=== PATIENT | male | born 1965 | race Caucasian/White ===

== ENCOUNTER 2019-11-05 05:23 | Observation (INO) | payer OTHER ==
[2019-11-05 06:29] LABS: Absolute Lymphocytes (CBC) 1.2 K/uL (0.7-4.9); Basophils % 0.4 % (0-1.3); Hematocrit 41.4 % (39.6-49.0); Lymphocytes % 11.9 % (15.3-44.8); MPV 8.2 fL (7.6-11.3); RBC Red Blood Cell Count 4.56 M/uL (4.33-5.43)
[2019-11-05 06:33] LABS: Protime INR 0.95
[2019-11-05 06:40] LABS: ALT/SGPT 29 U/L (12-78); AST/SGOT 21 U/L (15-37); Albumin 3.2 g/dL (3.4-5.0); Alkaline Phosphatase 61 U/L (45-117); BUN Blood Urea Nitrogen 10 mg/dL (7-18); Bicarbonate 25 mmol/L (21-32); Bilirubin Direct 0.2 mg/dL (0-0.2); Bilirubin Total 0.6 mg/dL (0.2-1.0); CKMB Creatine Kinase MB 1.5 ng/mL (0.3-3.6); Creatine Phosphokinase 113 U/L (39-308); Glucose Level 108 mg/dL (74-106); Lipase 65 U/L (73-393); NT PRO-BNP 155 pg/mL (<125); Potassium 3.9 mmol/L (3.5-5.1); Protein, Total 7.6 g/dL (6.4-8.2); Sodium Level 139 mmol/L (136-145); Troponin (Emerg Dept Use Only) < 0.02 ng/mL (0.0-0.045)
--- NOTE | 2019-11-05 07:12 | RAD REPORT ---
EXAM DESCRIPTION: RAD - Chest Single View - 11/05/2019 6:01 am CLINICAL HISTORY: SOB, left-sided chest pain, productive cough with shortness of breath COMPARISON: Two view chest October 2015 TECHNIQUE: AP portable chest image was obtained 11/05/2019 6:01 am . FINDINGS: Lung volumes are low compared to the prior study. No peripheral mass or consolidation. Par enchymal stranding in the right apex is present mostly obscured by overlapping chest bony structures. No large mass in this area. A small infiltrate or small mass cannot be excluded. Heart and vasculatu re are normal. No measurable pleural effusion and no pneumothorax. No acute bony abnormality seen. No acute aortic findings suspected. IMPRESSION: No pulmonary edema or failure findings. Increased opacification in the right apex needs further evaluation to exclude mass or infiltrate. Fol low-up chest film with apical lordotic view or follow-up CT chest would be recommended for further ev aluation.
--- NOTE | 2019-11-05 07:46 | RAD REPORT ---
EXAM DESCRIPTION: CT - Chest For Pe Angio - 11/05/2019 7:21 am CLINICAL HISTORY: Chest pain;Cough;SOB COMPARISON: Chest Single View dated 11/05/2019 TECHNIQUE: Dynamically enhanced 3 mm thick images of the chest were obtained during administration o f approximately 150mL Isovue 370 IV contrast. Coronal and oblique MIP reconstruction images were gene rated and reviewed. Exam utilizes a protocol to evaluate the pulmonary arterial tree. All CT scans are performed using dose optimization technique as appropriate and may include automated exposure control or mA/KV adjustment according to patient size. FINDINGS: No pulmonary emboli are identified. The aorta as imaged shows no acute or suspicious finding. No pericardial thickening or effusion. Patient has multiple abnormalities clustered in the right upper lobe apex. There is a dominant 4 cent imeter cystic cavity showing thickened irregular aguirre. No air-fluid level confirmed within this mass . An adjacent 2 centimeter oval solid mass is present. There are several clustered cavitary and solid nodules in the superior aspect of the right upper lobe. In the superior aspect of the superior segme nt right lower lobe there are 2 nodular masses present. A 14 millimeter cystic mass or nodule is pres ent with an adjacent 10 millimeter mass. This cystic nodule shows a similar thickened rim. In the sup erior aspect of the left upper lobe there are 2 10 millimeter spiculated solid nodules present. The r ight middle lobe and left lower lobe are clear of any solid or cystic cavitary mass or nodule. No ground-glass opacification. Bronchial wall thickening is seen in the right upper lobe. No endobron chial lesion. No pleural effusion or pleural thickening. Small hilar lymph nodes are present. Subcarinal lymphadenopathy is present without enhancement eviden t. Wall enhancement is not clearly defined in the cavitary lesions. No chest wall masses or abnormal axillary lymphadenopathy. IMPRESSION: No pulmonary emboli identified. Multiple cavitary and solid nodules are present with the predominant cluster of findings in the super ior aspect right upper lobe. Differential for this constellation of findings is relatively broad. Tuberculosis as well as nontuber culous mycobacterial infections are a primary consideration.Aspergillosis can have this appearance. Lung abscess is a lesser consideration. Septic emboli are possible if the patient has a corresponding acute presentation. Metastatic disease is possible ; however, the constellation of findings favor in fectious process rather than malignancy.
--- NOTE | 2019-11-05 08:04 | EDPHYS ---
Physician Documentation [facility] Name: Trung Thornton Age: 54 yrs Sex: Male : 1965 Arrival Date: 11/05/2019 Time: 05:25 Bed 30 Private MD: ED Physician Kellen Eng HPI: 11/04 06:15 This 54 yrs old Male presents to ER via Ambulatory with complaints of tw4 Shortness Of Breath. 06:15 The patient has shortness of breath at rest. Onset: The symptoms/episode began/occurred tw4 yesterday. Duration: The symptoms are continuous, and are steadily getting worse. The patient's shortness of breath is aggravated by coughing, is alleviated by nothing. Associated signs and symptoms: Pertinent positives: chest pain. Severity of symptoms: At their worst the symptoms were moderate in the emergency department the symptoms are unchanged. The patient has not experienced similar symptoms in the past. Historical: - Allergies: 05:42 No Known Allergies; bb - Home Meds: 05:42 None [Active]; bb - PMHx: 05:42 Rheumatoid Arthritis; bb - PSHx: 05:42 None; bb - Immunization history:: Adult Immunizations up to date, Flu vaccine is not up to date. - Social history:: Smoking status: Patient reports the use of cigarette tobacco products, smokes two packs cigarettes per day. Patient uses alcohol, occasionally. ROS: 06:15 Constitutional: Negative for fever, chills, and weight loss, Eyes: Negative for injury, tw4 pain, redness, and discharge. 06:15 Abdomen/GI: Negative for abdominal pain, nausea, vomiting, diarrhea, and constipation, Back: Negative for injury and pain, MS/Extremity: Negative for injury and deformity, Skin: Negative for injury, rash, and discoloration, Neuro: Negative for headache, weakness, numbness, tingling, and seizure. 06:15 Cardiovascular: Positive for chest pain. 06:15 Cardiovascular: Positive for Negative for edema, orthopnea, palpitations, paroxysmal nocturnal dyspnea. 06:15 Respiratory: Positive for shortness of breath, Negative for cough, dyspnea on exertion, hemoptysis, orthopnea, pleurisy. Exam: 06:15 Constitutional: This is a well developed, well nourished patient who is awake, alert, tw4 and in no acute distress. Head/Face: Normocephalic, atraumatic. Chest/axilla: Normal chest wall appearance and motion. Nontender with no deformity. No lesions are appreciated. Cardiovascular: Regular rate and rhythm with a normal S1 and S2. No gallops, murmurs, or rubs. Normal PMI, no JVD. No pulse deficits. Respiratory: Lungs have equal breath sounds bilaterally, clear to auscultation and percussion. No rales, rhonchi or wheezes noted. No increased work of breathing, no retractions or nasal flaring. Abdomen/GI: Soft, non-tender, with normal bowel sounds. No distension or tympany. No guarding or rebound. No evidence of tenderness throughout. Back: No spinal tenderness. No costovertebral tenderness. Full range of motion. MS/ Extremity: Pulses equal, no cyanosis. Neurovascular intact. Full, normal range of motion. Neuro: Awake and alert, GCS 15, oriented to person, place, time, and situation. Cranial nerves II-XII grossly intact. Motor strength 5/5 in all extremities. Sensory grossly intact. Cerebellar exam normal. Normal gait. Vital Signs: 05:37 BP 122 / 72; Pulse 79; Resp 24 S; Temp 99(O); Pulse Ox 94% on R/A; Weight 74.84 kg (R); bb Height 5 ft. 11 in. (180.34 cm) (R); Pain 9/10; 06:33 BP 117 / 63; Pulse 74; Resp 25 S; Pulse Ox 98% on 2 lpm NC; jd3 07:45 BP 112 / 74; Pulse 68; Resp 24 S; Temp 99.9(O); Pulse Ox 98% on 2 lpm NC; aa5 08:45 BP 115 / 70; Pulse 71; Resp 25 S; Pulse Ox 99% on 2 lpm NC; aa5 09:26 BP 109 / 66; Pulse 75; Resp 22 S; Temp 99.8(O); Pulse Ox 99% on 2 lpm NC; aa5 10:40 BP 111 / 70; Pulse 68; Resp 20 S; Pulse Ox 99% on 2 lpm NC; aa5 05:37 Body Mass Index 23.01 (74.84 kg, 180.34 cm) MDM: 05:28 Patient medically screened. tw4 08:02 Differential diagnosis: Bronchitis Chronic Obstructive Pulmonary Disease pneumonia, ma2 Pneumothorax Pulmonary Embolism. Antibiotic administration: Data reviewed: vital signs, nurses notes. Response to treatment: the patient's symptoms have markedly improved after treatment. 11/04 05:29 Order name: Blood Culture Adult (2) 11/04 05:29 Order name: BMP; Complete Time: 07:56 11/04 05:29 Order name: CBC with Diff; Complete Time: 06:38 11/04 06:38 Interpretation: Normal except: YVAN% 75.8; LYM% 11.9. 11/04 05:29 Order name: Ckmb; Complete Time: 07:56 11/04 05:29 Order name: CPK; Complete Time: 07:56 11/04 05:29 Order name: D-Dimer; Complete Time: 06:38 11/04 06:38 Interpretation: Abnormal: D-DIMER 877. 11/04 05:29 Order name: Hepatic Function; Complete Time: 07:56 11/04 05:29 Order name: Lipase; Complete Time: 07:56 11/04 05:29 Order name: Magnesium; Complete Time: 07:56 11/04 05:29 Order name: NT PRO-BNP; Complete Time: 07:56 11/04 05:29 Order name: PT-INR; Complete Time: 06:38 11/04 06:38 Interpretation: Within normal limits: PT 11.2. 11/04 05:29 Order name: Ptt, Activated; Complete Time: 06:38 11/04 06:38 Interpretation: Within normal limits: PTT 26.8. 11/04 05:29 Order name: Troponin (emerg Dept Use Only); Complete Time: 07:56 11/04 06:13 Order name: COVID-19; Complete Time: 09:23 11/04 05:29 Order name: XRAY CXR (1 view); Complete Time: 07:56 11/04 05:29 Order name: EKG; Complete Time: 05:29 11/04 06:38 Order name: CT Chest For PE Angio; Complete Time: 07:56 tw11/04 09:14 Order name: CONS Physician Consult EDOR 11/04 09:14 Order name: Regular EDMS 11/04 09:14 Order name: Basic Metabolic Panel EDMS 11/04 09:14 Order name: Basic Metabolic Panel EDMS 11/04 09:14 Order name: Basic Metabolic Panel EDMS 11/04 09:14 Order name: Basic Metabolic Panel EDMS 11/04 09:14 Order name: CBC with Automated Diff EDMS 11/04 09:14 Order name: CBC with Automated Diff EDMS 11/04 09:14 Order name: CBC with Automated Diff EDMS 11/04 09:14 Order name: CBC with Automated Diff EDMS 11/04 09:14 Order name: Sputum Culture EDMS 11/04 09:20 Order name: Diet Regular; Complete Time: 09:21 mh5 11/04 11:46 Order name: Diet Regular; Complete Time: 11:47 aa5 11/04 05:29 Order name: Cardiac monitoring; Complete Time: 05:45 tw4 11/04 05:29 Order name: EKG - Nurse/Tech; Complete Time: 05:45 tw4 11/04 05:29 Order name: IV Saline Lock; Complete Time: 06:26 tw4 11/04 05:29 Order name: Labs collected and sent; Complete Time: 06:26 tw4 11/04 05:29 Order name: O2 Per Protocol; Complete Time: 05:45 tw4 11/04 05:29 Order name: O2 Sat Monitoring; Complete Time: 05:45 tw4 EC:15 Rate is 83 beats/min. Rhythm is regular. QRS [place] is Normal. RI interval is normal. QRS tw4 interval is normal. QT interval is normal. No Q waves. T waves are Normal. No ST changes noted. Clinical impression: Normal ECG. Interpreted by me. Reviewed by me. Administered Medications: No medications were administered Disposition: 11/05/19 08:03 Hospitalization ordered by Jaime Pinon for Inpatient Admission. Preliminary diagnosis are Pneumonia due to other specified bacteria, Hypoxemia. - Bed requested for Telemetry/MedSurg (Inpatient). - Status is Inpatient Admission. rr5 - Condition is Stable. - Problem is new. - Symptoms are unchanged. Signatures: Dispatcher [employer] EDOR Sabina Ribeiro RN RN bb Smirch, Shelby, RN RN ss Hi Rae, STAINED GLASS WINDOW DESIGNER-C STAINED GLASS WINDOW DESIGNER-Cla1 Zoila Saldana RN RN cg Henry, Aminah dc Kellen Eng MD MD ma2 Haseeb Chavez MD MD 4 Anthony Birmingham, RN RN rr5 Corrections: (The following items were deleted from the chart) 09:57 08:03 Hospitalization Ordered by Jaime Prezas DO for Inpatient Admission. Preliminary mt diagnosis is Pneumonia due to other specified bacteria; Hypoxemia. Bed requested for Telemetry/MedSurg (Inpatient). Status is Inpatient Admission. Condition is Stable. Problem is new. Symptoms are unchanged. ma2 12:31 09:57 11/05/2019 08:03 Hospitalization Ordered by Jaime Prezas DO for Inpatient ss Admission. Preliminary diagnosis is Pneumonia due to other specified bacteria; Hypoxemia. Bed requested for Telemetry/MedSurg (Inpatient). Status is Inpatient Admission. Condition is Stable. Problem is new. Symptoms are unchanged. mt 20:13 12:31 11/05/2019 08:03 Hospitalization Ordered by [place] Prezas DO for Inpatient cg Admission. Preliminary diagnosis is Pneumonia due to other specified bacteria; Hypoxemia. Bed requested for [facility] ER HOLD. Status is Inpatient Admission. Condition is Stable. Problem is new. Symptoms are unchanged. ss 21:17 20:13 11/05/2019 08:03 Hospitalization Ordered by [place] Prezas DO for Inpatient rr5 Admission. Preliminary diagnosis is Pneumonia due to other specified bacteria; Hypoxemia. Bed requested for Telemetry/MedSurg (Inpatient). Status is Inpatient Admission. Condition is Stable. Problem is new. Symptoms are unchanged.
--- NOTE | 2019-11-05 08:04 | ER ---
Nurse's Notes [facility] Name: Trung Thornton Age: 54 yrs Sex: Male : 1965 Arrival Date: 11/05/2019 Time: 05:25 Bed 30 Private MD: Diagnosis: Pneumonia due to other specified bacteria;Hypoxemia Presentation: 11/04 05:37 Chief complaint: Patient states: he is having left sided chest pain with respirations bb and a productive cough with shortness of breath which has worsened since yesterday he also noticed some specks of blood in his sputum since he woke up this morning. Coronavirus screen: Surgical mask placed on patient. Patient moved to private room, placed in contact and droplet isolation with eye protection until further assessment. Patient reports a cough. Patient reports shortness of breath or difficulty breathing. Patient denies measured and/or subjective temperature greater than 100.4F. Patient denies travel on a cruise ship or to a country the [facility] currently lists as an affected area. Patient denies contact with known and/or suspected case of COVID-19. Ebola Screen: No symptoms or risks identified at this time. Initial Sepsis Screen: Does the patient meet any 2 criteria? No. Patient's initial sepsis screen is negative. Does the patient have a suspected source of infection? Yes: Productive cough/pneumonia. Risk Assessment: Do you want to hurt yourself or someone else? Patient reports no desire to harm self or others. Onset of symptoms was November 03, 2019. 05:37 Method Of Arrival: Ambulatory bb 05:37 Acuity: DISHA 3 bb Triage Assessment: 06:32 Respiratory: Onset: The symptoms/episode began/occurred yesterday, the patient has mild jd3 shortness of breath. Historical: - Allergies: 05:42 No Known Allergies; bb - Home Meds: 05:42 None [Active]; bb - PMHx: 05:42 Rheumatoid Arthritis; bb - PSHx: 05:42 None; bb - Immunization history:: Adult Immunizations up to date, Flu vaccine is not up to date. - Social history:: Smoking status: Patient reports the use of cigarette tobacco products, smokes two packs cigarettes per day. Patient uses alcohol, occasionally. Screenin:31 Abuse screen: Denies threats or abuse. Nutritional screening: No deficits noted. jd3 Tuberculosis screening: No symptoms or risk factors identified. Fall Risk IV access (20 points). Ambulatory Aid- None/Bed Rest/Nurse Assist (0 pts). Gait- Normal/Bed Rest/Wheelchair (0 pts) Mental Status- Oriented to own ability (0 pts). Total Hanson Fall Scale indicates No Risk (0-24 pts). Assessment: 06:08 General: Appears in no apparent distress. uncomfortable, Behavior is calm, cooperative, jd3 appropriate for age. Pain: Complains of pain in chest Quality of pain is described as pressure. Neuro: Level of Consciousness is awake, alert, obeys commands, Oriented to person, place, time, situation. Cardiovascular: Reports chest pain, shortness of breath, Heart tones S1 S2 present Capillary refill < 3 seconds Patient's skin is warm and dry. Rhythm is regular. Respiratory: Reports shortness of breath at rest cough that is non-productive, persistent Airway is patent Respiratory effort is even, shallow, Respiratory pattern is symmetrical, tachypnea Breath sounds are diminished bilaterally. GI: No signs and/or symptoms were reported involving the gastrointestinal system. Patient currently denies constipation, diarrhea, nausea, vomiting. : No signs and/or symptoms were reported regarding the genitourinary system. EENT: small amount of phlegm coughed up with specs of red noted. Derm: Skin is intact, Skin is dry, Skin is normal, Skin temperature is warm. Musculoskeletal: Circulation, motion, and sensation intact. Range of motion: intact in all extremities. 06:20 Reassessment: pt placed on nasal canula to aid assist pt with feeling short of breath. jd3 06:34 Reassessment: No changes from previously documented assessment. Patient and/or family jd3 updated on plan of care and expected duration. Pain level reassessed. pt reporting oxygen is helping a little. 07:30 General: Appears comfortable, Behavior is calm, cooperative. Pain: Complains of pain in aa5 left lower rib cage Pain does not radiate. Pain currently is 0 out of 10 on a pain scale. Quality of pain is described as sharp, Pain began 1 day ago. Pt reports pain only "when trying to take a deep breath and trying to cough up the phlegm" Is intermittent, lasting a few seconds. Neuro: Level of Consciousness is awake, alert, obeys commands, Oriented to person, place, time, situation. Cardiovascular: Heart tones S1 S2 present Rhythm is regular. Respiratory: Reports shortness of breath only "when taking a deep breath and trying to cough up phlegm" cough that is productive, yellowish sputum noted. Pt states "this is the first time that my phlegm didn't have any blood in it" Airway is patent Respiratory effort is even, unlabored, shallow, Respiratory pattern is regular, symmetrical, Breath sounds are diminished bilaterally. GI: Abdomen is round non-distended, Bowel sounds present X 4 quads. Abd is soft and non tender X 4 quads. : No signs and/or symptoms were reported regarding the genitourinary system. EENT: No signs and/or symptoms were reported regarding the EENT system. Derm: Skin is pink, warm \\T\\ dry. Musculoskeletal: Range of motion: intact in all extremities. 07:30 Reassessment: Awaiting complete results, pt notified of wait time. . aa5 08:33 Reassessment: PUI [id number]. 09:23 Reassessment: Patient is alert, oriented x 3, equal unlabored respirations, skin aa5 warm/dry/pink. Pt sitting up in bed. Pt given cup of coffee at this time and breakfast tray ordered. Pt notified of wait time for room assignment. . 10:15 Reassessment: Sputum culture sent to lab by plastic surgery technician . aa5 10:20 Reassessment: Report given to MATEO Coffey. Room assignment will need to be changed to aa negative pressure room as informed by MATEO Coffey and will take approximately 2 hours before the room is ready. Pt was also notified of time to be transferred to admitting room, pt verbalized understanding. Pt ate breakfast, lights dimmed for comfort. Pt now resting in bed. Equal and unlabored respirations, skin is pink/warm/dry. . 11:20 Reassessment: Patient is alert, oriented x 3, equal unlabored respirations, skin aa5 warm/dry/pink. Pt resting in bed. . 13:00 Reassessment: Pt moved to ER Room 30 (Negative pressure room), pt's care will be aa5 continued by MATEO Coffey. . Vital Signs: 05:37 BP 122 / 72; Pulse 79; Resp 24 S; Temp 99(O); Pulse Ox 94% on R/A; Weight 74.84 kg (R); bb Height 5 ft. 11 in. (180.34 cm) (R); Pain 9/10; 06:33 BP 117 / 63; Pulse 74; Resp 25 S; Pulse Ox 98% on 2 lpm NC; jd3 07:45 BP 112 / 74; Pulse 68; Resp 24 S; Temp 99.9(O); Pulse Ox 98% on 2 lpm NC; aa5 08:45 BP 115 / 70; Pulse 71; Resp 25 S; Pulse Ox 99% on 2 lpm NC; aa5 09:26 BP 109 / 66; Pulse 75; Resp 22 S; Temp 99.8(O); Pulse Ox 99% on 2 lpm NC; aa5 10:40 BP 111 / 70; Pulse 68; Resp 20 S; Pulse Ox 99% on 2 lpm NC; aa5 05:37 Body Mass Index 23.01 (74.84 kg, 180.34 cm) bb ED Course: 05:25 Patient arrived in ED. cl3 05:28 Haseeb Chavez MD is Attending Physician. tw4 05:41 Triage completed. bb 05:42 Arm band placed on Patient placed in an exam room, on a stretcher, on mechanical systems designer, bb on pulse oximetry. EKG completed in triage. Results shown to MD. 05:45 Chris Joseph RN is Primary Nurse. jd3 06:01 XRAY CXR (1 view) In Process Unspecified. EDMS 06:08 Inserted saline lock: 20 gauge in right antecubital area, using aseptic technique. jd3 Blood collected. 06:32 Patient has correct armband on for positive identification. Placed in gown. Bed in low jd3 position. Call light in reach. Side rails up X 1. readers' advisory service librarian on. Pulse ox on. NIBP on. 06:37 Notified ED physician of a critical lab result(s). D-Dimer [id number] Dr Chavez notified. bb 07:05 Report received from MATEO Perez. aa5 07:21 CT Chest For PE Angio In Process Unspecified. EDMS 08:01 Attending Physician role handed off by Haseeb Chavez MD ma2 08:01 Kellen Eng MD is Attending Physician. ma2 08:03 Jaime Pinon DO is Hospitalizing Provider. ma2 12:43 Sputum Culture Sent. 5 13:00 No provider procedures requiring assistance completed. Patient admitted, IV remains in aa5 place. Administered Medications: No medications were administered Outcome: 08:03 Decision to Hospitalize by Provider. ma2 13:00 Admitted to ER Hold. Please see [facility] for further documentation. aa5 21:15 Condition: stable rr5 21:17 Patient left the ED. rr5 Signatures: Dispatcher [employer] EDMS Sabina Ribeiro, MATEO RN Wendy Villareal RN RN aa5 Katherine Pierce RN RN ss Martinez, Maria 5 Chris Joseph RN RN Kellen Matias MD MD ar2 Haseeb Chavez MD MD 4 Anthony Birmingham, RN RN rr5 Katelynn Adams cl3 Corrections: (The following items were deleted from the chart) 10:40 08:45 BP 115 / 70; Pulse 71bpm; Resp 25bpm; Spontaneous; Pulse Ox 99% RA; aa5 aa5 10:40 09:26 BP 109 / 66; Pulse 75bpm; Resp 22bpm; Spontaneous; Pulse Ox 99% RA; Temp 99.8F aa5 Oral; aa5
[2019-11-05] MEDS ORDERED: TRAMADOL HCL 50 MG TAB PO PRN (09:02)
[2019-11-05] MEDS ORDERED: ALBUTEROL INHALER 60 PUFF/8 GM IH PRN (09:02)
[2019-11-05] MEDS ORDERED: BENZONATATE 100 MG CAP PO PRN (09:02)
[2019-11-05] MEDS ORDERED: AMOX/K CLAV 875 MG TAB PO ONE (09:02)
[2019-11-05] MEDS ORDERED: ONDANSETRON 4 MG/2 ML VIAL IV PRN (09:02)
[2019-11-05] MEDS ORDERED: ACETAMINOPHEN 500 MG TAB PO PRN (09:02)
[2019-11-05] MEDS ORDERED: NICOTINE 21 MG/PAT TD PRN (09:02)
--- NOTE | 2019-11-05 09:21 | P.HP ---
Certification for Inpatient Patient admitted to: Observation With expected LOS: <2 Midnights Patient will require the following post-hospital care: None Practitioner: I am a practitioner with admitting privileges, knowledge of patient current condition, hospital course, and medical plan of care. Services: Services provided to patient in accordance with Admission requirements found in Title 42 Section 412.3 of the Code of Federal Regulations Patient History Date of Service: 11/05/19 Primary Care Provider: Dr. Castro Reason for admission: Hemoptysis, cough History of Present Illness: 54-year-old male history of rheumatoid arthritis who was on a biologic for approximately 1 year presented to the emergency department with a 2 day history of productive cough of Foamy sputum. Patient reports that this morning he noticed a small Dots and no blood in his sputum which led him to bleed that he should seek care in the emergency department. Patient reports that he feels short of breath when walking for the past couple of days. Patient denies any known history of COPD. Patient was evaluated in the emergency department and was found to have a constellation of changes in his right upper lobe on both the x-ray and CT of his chest. The ER attending requested admission for this patient for hemoptysis and cough for further workup and management. When I saw the patient in the emergency department he appears stable in no respiratory distress. The patient was calm and cooperative and reports that he has only mild pain when breathing. Patient informed me that he had recently stopped taking his biologic due to concern for the viral pandemic. Patient reports that he has smoked 2 packs per day for the last 40 years, denies incarceration, denies travel outside the country, denies industrial exposure, denies night sweats. Patient reports that he is not sure when he had his last TB test. Patient will be admitted for further workup and evaluation. Test for block virus 19 was collected in the emergency department and we will be awaiting the results. Sputum culture will be obtained to rule out infective causes of the abnormalities on his imaging. I anticipate the results from the viral testing to the back in the next 24 hr, at which point the further plan of therapy developed. Pulmonology will be consulted on this case. Home medications list reviewed: Yes - Past Medical/Surgical History Diabetic: No -: Rheumatoid arthritis Past Surgical History: Patient denies surgical history Psychosocial/ Personal History: pt has live in girlfriend - Family History Family History: Reviewed- Non-Contributory - Social History Smoking Status: Current every day smoker Counseled patient to stop smoking for: less than 10 minutes Smoking therapy provided: Yes Alcohol use: Yes CD- Drugs: No Caffeine use: Yes Place of Residence: Home Review of Systems Unremarkable General: Chills Eyes: Unremarkable ENT: Unremarkable Respiratory: Dry, Shortness of Breath, Hemoptysis, SOB with Excertion, Pleuritic Pain, Sputum Cardiovascular: Unremarkable Gastrointestinal: Unremarkable Genitourinary: Unremarkable Musculoskeletal: Unremarkable Integumentary: Unremarkable Neurological: Unremarkable Lymphatics: Unremarkable Physical Examination - Physical Exam General: Alert, In no apparent distress, Oriented x3 HEENT: Atraumatic, Normocephalic Neck: Supple Respiratory: Clear to auscultation bilaterally, Normal air movement Cardiovascular: No edema, Normal S1 S2 Capillary refill: <2 Seconds Gastrointestinal: Normal bowel sounds, Soft and benign, Non-distended Musculoskeletal: No clubbing, No swelling, No contractures, No erythema, No tenderness, No warmth Integumentary: No rashes Neurological: Normal gait, Normal speech, Normal strength at 5/5 x4 extr Lymphatics: No axilla or inguinal lymphadenopathy - Studies Laboratory Data (last 24 hrs) 11/05/19 06:08: PT 11.2, INR 0.95, APTT 26.8 11/05/19 06:08: WBC 10.0, Hgb 14.1, Hct 41.4, Plt Count 214 11/05/19 06:08: Sodium 139, Potassium 3.9, BUN 10, Creatinine 0.83, Glucose 108 H, Magnesium 2.0, Total Bilirubin 0.6, AST 21, ALT 29, Alkaline Phosphatase 61, Lipase 65 L Microbiology Data (last 24 hrs): 11/05/19 06:17 Nasopharnyx Coronavirus COVID-19 PCR - Final Assessment and Plan - Plan Problems Hemoptysis and cough secondary to multiple cavitary and solid nodules present in the right upper lobe Rheumatoid arthritis Plan Hemoptysis and cough secondary to multiple cavitary and solid nodules present in the right upper lobe: Patient will be admitted for further evaluation of the cavitary and solid nodules in the right upper lobe. Consulted with pulmonology who will see the patient and recommended the patient receive Augmentin and doxycycline for broad-spectrum coverage. Primary considerations at this time are block virus 19, tuberculosis,MAC, Aspergillus. Sputum culture will be obtained and we will await the results of the viral testing to develop a further plan of care. Patient is stable at this time buy requires further workup. Patient counseled on need to stop smoking, states he will start smoking now. I offered nicotine patch which patient deferred. DVT prophylaxis with Lovenox-40 mg. Rheumatoid arthritis: Home medications will be obtained and reviewed. further decision about the use of his biologic will be determined by the results of his workup in the hospital. Discharge Plan: Home Plan to discharge in: 48 Hours - Advance Directives Does patient have a Living Will: No Does patient have a Durable POA for Healthcare: No - Code Status/Comfort Care Code Status Assessed: Yes (Full Code) Time Spent Managing Pts Care (In Minutes): 55
--- NOTE | 2019-11-05 10:59 | EKG ---
Test Date: 2019-11-05 Test Time: 05:38:51 Inside Phone Sales: DANYELL MEASUREMENT RESULTS: Intervals: Rate: 83 NH: 122 QRSD: 90 QT: 356 QTc: 418 [place]: P: 67 NH: 122 QRS: 77 T: 72 INTERPRETIVE STATEMENTS: Normal sinus rhythm Normal ECG No previous ECG available for comparison Electronically Signed On 11-05-19 10:58:48 CDT by Schuyler Scott
[2019-11-05] MEDS ORDERED: AMOX/K CLAV 875 MG TAB ONE (14:06)
[2019-11-05] MEDS ORDERED: HYDROCODONE/APAP 7.5/325 MG TAB ONE (14:09)
[2019-11-05 14:35] VITALS: BMI 23.0
[2019-11-05] MEDS: HYDROCODONE/APAP 7.5/325 MG TAB PO PRN ×2 (14:41→21:54)
[2019-11-05] MEDS ORDERED: ACETAMINOPHEN 500 MG TAB ONE (21:06)
[2019-11-05] MEDS: DOXYCYCLINE 100 MG CAP PO SCH (21:21)
[2019-11-05] MEDS: GUAIFENESIN 600 MG SA TAB PO SCH (21:21)
[2019-11-05] MEDS: DULERA 100/5 (MOMETASONE/FORMOTEROL) INHALER IH SCH (21:23)
[2019-11-06 04:43] VITALS: O2SAT 95
[2019-11-06 07:38] LABS: BUN Blood Urea Nitrogen 9 mg/dL (7-18); Bicarbonate 29 mmol/L (21-32); Glucose Level 99 mg/dL (74-106); Potassium 4.2 mmol/L (3.5-5.1); Sodium Level 138 mmol/L (136-145)
[2019-11-06 07:41] LABS: Absolute Lymphocytes (CBC) 1.7 K/uL (0.7-4.9); Basophils % 0.2 % (0-1.3); Lymphocytes % 16.9 % (15.3-44.8); MPV 8.2 fL (7.6-11.3); RBC Red Blood Cell Count 4.17 M/uL (4.33-5.43)
--- NOTE | 2019-11-06 08:36 | P.DS ---
Admission Date: 11/05/19 Discharge Date: 11/06/19 Primary Care Provider: Dr. Castro Disposition: ROUTINE DISCHARGE Discharge Condition: GOOD Reason for Admission: Hemoptysis, cough Consultations: Dr. Valdez - Pulmonology Procedures: CT - Chest For Pe Angio CLINICAL HISTORY: Chest pain;Cough;SOB COMPARISON: Chest Single View dated 11/05/2019 TECHNIQUE: Dynamically enhanced 3 mm thick images of the chest were obtained during administration of approximately 150mL Isovue 370 IV contrast. Coronal and oblique MIP reconstruction images were generated and reviewed. Exam utilizes a protocol to evaluate the pulmonary arterial tree. All CT scans are performed using dose optimization technique as appropriate and may include automated exposure control or mA/KV adjustment according to patient size. FINDINGS: No pulmonary emboli are identified. The aorta as imaged shows no acute or suspicious finding. No pericardial thickening or effusion. Patient has multiple abnormalities clustered in the right upper lobe apex. There is a dominant 4 centimeter cystic cavity showing thickened irregular aguirre. No air-fluid level confirmed within this mass. An adjacent 2 centimeter oval solid mass is present. There are several clustered cavitary and solid nodules in the superior aspect of the right upper lobe. In the superior aspect of the superior segment right lower lobe there are 2 nodular masses present. A 14 millimeter cystic mass or nodule is present with an adjacent 10 millimeter mass. This cystic nodule shows a similar thickened rim. In the superior aspect of the left upper lobe there are 2 10 millimeter spiculated solid nodules present. The right middle lobe and left lower lobe are clear of any solid or cystic cavitary mass or nodule. No ground-glass opacification. Bronchial wall thickening is seen in the right upper lobe. No endobronchial lesion. No pleural effusion or pleural thickening. Small hilar lymph nodes are present. Subcarinal lymphadenopathy is present without enhancement evident. Wall enhancement is not clearly defined in the cavitary lesions. No chest wall masses or abnormal axillary lymphadenopathy. IMPRESSION: No pulmonary emboli identified. Multiple cavitary and solid nodules are present with the predominant cluster of findings in the superior aspect right upper lobe. Differential for this constellation of findings is relatively broad. Tuberculosis as well as nontuberculous mycobacterial infections are a primary consideration.Aspergillosis can have this appearance. Lung abscess is a lesser consideration. Septic emboli are possible if the patient has a corresponding acute presentation. Metastatic disease is possible ; however, the constellation of findings favor infectious process rather than malignancy. EXAM DESCRIPTION: RAD - Chest Single View - 11/05/2019 6:01 am CLINICAL HISTORY: SOB, left-sided chest pain, productive cough with shortness of breath COMPARISON: Two view chest October 2015 TECHNIQUE: AP portable chest image was obtained 11/05/2019 6:01 am . FINDINGS: Lung volumes are low compared to the prior study. No peripheral mass or consolidation. Parenchymal stranding in the right apex is present mostly obscured by overlapping chest bony structures. No large mass in this area. A small infiltrate or small mass cannot be excluded. Heart and vasculature are normal. No measurable pleural effusion and no pneumothorax. No acute bony abnormality seen. No acute aortic findings suspected. IMPRESSION: No pulmonary edema or failure findings. Increased opacification in the right apex needs further evaluation to exclude mass or infiltrate. Follow-up chest film with apical lordotic view or follow-up CT chest would be recommended for further evaluation. Problems Hemoptysis and cough secondary to multiple cavitary and solid nodules present in the right upper lobe suspect mycobacterium Avium versus tuberculosis versus malignancy COPD Tobacco abuse Rheumatoid arthritis Brief History of Present Illness: Patient feeling well today. Less short of breath. Has remained afebrile since admission. Hospital Course: The patient was admitted from emergency department with cough and hemoptysis. Patient is being evaluated for a block virus 19, at this time those results have not returned. CT scan of the chest in the emergency department showed cavitary lesions in nodules in the right upper lobe. Dr. Valdez was consulted from pulmonology who believes that these findings represent a differential consisting of mycobacterium avium, ,TB, or malignancy. Multiple sputum cultures were obtained for AFB testing. Hemoptysis is mild with some streaking in his sputum. Hemoglobin/hematocrit stable. The patient without significant shortness of breath, no need for home oxygen. Pulmonology doubts COVID 19 infection. The patient likely has the COPD untreated. With history of tobacco abuse. At discharge the patient will need to follow up with pulmonology after his hospitalization for further workup and care, instructions were given to the patient. For COPD, patient will be will continue with pro air 2 puffs 3 times a day as needed for shortness breath and Advair 1 puff twice daily. In addition Augmentin 875mg twice daily, doxycycline 100mg twice daily, and as prednisone 10 mg twice daily for 5 days and once daily for 5 days.The patient will be discharged before the results from a block virus 19 testing have returned. It is recommended that he self quarantine for 14 days or until shown to be negative. Additionally instructed to follow up with his primary care doctor who previously prescribed his biologic for his rheumatoid arthritis to determine if it should still be continued. Vital Signs/Physical Exam: Temp Pulse Resp BP Pulse Ox 97.8 F 74 20 101/54 L 95 11/06/19 04:00 11/06/19 04:00 11/06/19 04:00 11/06/19 04:00 11/06/19 04:00 General: Alert, In no apparent distress HEENT: Atraumatic, Normocephalic Neck: Supple Respiratory: Clear to auscultation bilaterally, Normal air movement Cardiovascular: Normal S1 S2 Capillary refill: <2 Seconds Gastrointestinal: Normal bowel sounds Musculoskeletal: No clubbing Integumentary: No rashes, No breakdown Neurological: Normal speech, Normal strength at 5/5 x4 extr, Normal tone Lymphatics: No axilla or inguinal lymphadenopathy Laboratory Data at Discharge: WBC 10.3 K/uL (4.3-10.9) 11/06/19 06:30 Hgb 13.2 g/dL (13.6-17.9) L 11/06/19 06:30 Hct 39.0 % (39.6-49.0) L 11/06/19 06:30 Plt Count 166 K/uL (152-406) D 11/06/19 06:30 PT 11.2 SECONDS (9.5-12.5) 11/05/19 06:08 INR 0.95 11/05/19 06:08 APTT 26.8 SECONDS (24.3-36.9) 11/05/19 06:08 Sodium 138 mmol/L (136-145) 11/06/19 06:30 Potassium 4.2 mmol/L (3.5-5.1) 11/06/19 06:30 BUN 9 mg/dL (7-18) 11/06/19 06:30 Creatinine 0.78 mg/dL (0.55-1.3) 11/06/19 06:30 Glucose 99 mg/dL (74-106) 11/06/19 06:30 Magnesium 2.0 mg/dL (1.8-2.4) 11/05/19 06:08 Total Bilirubin 0.6 mg/dL (0.2-1.0) 11/05/19 06:08 AST 21 U/L (15-37) 11/05/19 06:08 ALT 29 U/L (12-78) 11/05/19 06:08 Alkaline Phosphatase 61 U/L (45-117) 11/05/19 06:08 Lipase 65 U/L (73-393) L 11/05/19 06:08 Home Medications: Tofacitinib Citrate [Xeljanz Xr] 11 mg PO DAILY 11/05/19 Albuterol Inhaler [Ventolin Inhaler*] 2 puff IH Q6H PRN #1 hfa.aer.ad 11/06/19 Amox/Clavulanate [Augmentin 875-125 Tab] 875 mg PO BID 7 Days #14 tab 11/06/19 Doxycycline Hyclate 100 mg PO BID* 7 Days #14 tablet 11/06/19 Fluticasone/Salmeterol [Advair 250-50 Diskus] 1 each IH BID #1 blst.w.dev predniSONE [Deltasone*] 10 mg PO BID 10 Days #15 tab 11/06/19 New Medications: Albuterol Inhaler [Ventolin Inhaler*] 2 puff IH Q6H PRN #1 hfa.aer.ad PRN Reason: Shortness Of Breath Amox/Clavulanate [Augmentin 875-125 Tab] 875 mg PO BID 7 Days #14 tab Doxycycline Hyclate 100 mg PO BID* 7 Days #14 tablet Fluticasone/Salmeterol [Advair 250-50 Diskus] 1 each IH BID #1 blst.w.dev predniSONE [Deltasone*] 10 mg PO BID 10 Days #15 tab Patient Discharge Instructions: 1. 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 Recommend follow up in 1-2 weeks. Recommend self quarantine the next 14 days or until results from block virus testing returned. 2.The patient was admitted from emergency department with cough and hemoptysis. Patient is being evaluated for a block virus 19, at this time those results have not returned. CT scan of the chest in the emergency department showed cavitary lesions in nodules in the right upper lobe. Dr. Valdez was consulted from pulmonology who believes that these findings represent a differential consisting of mycobacterium avium, ,TB, or malignancy. Multiple sputum cultures were obtained for AFB testing. Hemoptysis is mild with some streaking in his sputum. Hemoglobin/hematocrit stable. The patient without significant shortness of breath, no need for home oxygen. Pulmonology doubts COVID 19 infection. The patient likely has the COPD untreated. With history of tobacco abuse. At discharge the patient will need to follow up with pulmonology after his hospitalization for further workup and care, instructions were given to the patient. For COPD, patient will be will continue with pro air 2 puffs 3 times a day as needed for shortness breath and Advair 1 puff twice daily. In addition Augmentin 875mg twice daily, doxycycline 100mg twice daily, and as prednisone 10 mg twice daily for 5 days and once daily for 5 days.The patient will be discharged before the results from a block virus 19 testing have returned. It is recommended that he self quarantine for 14 days or until shown to be negative. Additionally instructed to follow up with his primary care doctor who previously prescribed his biologic for his rheumatoid arthritis to determine if it should still be continued. Diet: Regular Activity: Ad randy Time spent managing pt's care (in minutes): 55
[2019-11-06] MEDS ORDERED: ENOXAPARIN 40 MG/0.4 ML SQ SCH (09:00)
[2019-11-06] MEDS: DULERA 100/5 (MOMETASONE/FORMOTEROL) INHALER IH SCH (09:00)
[2019-11-06] MEDS: GUAIFENESIN 600 MG SA TAB PO SCH (09:07)
[2019-11-06] MEDS: DOXYCYCLINE 100 MG CAP PO SCH (09:07)
[2019-11-06 09:10] LABS: Blood Morphology Comment NOT SEEN (NOT SEEN); Platelet Estimate ADEQ
--- NOTE | 2019-11-06 10:44 | P.CNS ---
Date of Consult: 11/06/19 Primary Care Provider: Dr. 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 presume COPD denies any fever or chills patient is immunocompromised CEA is on rheumatoid arthritis therapy Allergies No Known Allergies Allergy (Verified 11/05/19 14:56) Home Medications: Tofacitinib Citrate [Xeljanz Xr] 11 mg PO DAILY 11/05/19 Albuterol Inhaler [Ventolin Inhaler*] 2 puff IH Q6H PRN #1 hfa.aer.ad 11/06/19 Fluticasone/Salmeterol [Advair 250-50 Diskus] 1 each IH BID #1 blst.w.dev 11/06/19 - Past Medical/Surgical History Diabetic: No -: Rheumatoid arthritis Psychosocial/ Personal History: pt has live in girlfriend - Family History Father Medical History: Heart disease Mother Medical History: Other (see notes) Notes: mental disorder - Social History Smoking Status: Current every day smoker Alcohol use: Yes CD- Drugs: No Caffeine use: Yes Place of Residence: Home Review of Systems General: Weakness Respiratory: Shortness of Breath, Pleuritic Pain Physical Examination Temp Pulse Resp BP Pulse Ox 99.9 F 74 20 101/54 L 95 11/06/19 09:29 11/06/19 04:00 11/06/19 04:00 11/06/19 04:00 11/06/19 04:00 General: Alert, Oriented x3, Moderate distress Respiratory: Clear to auscultation bilaterally, Diminished Cardiovascular: Regular rate/rhythm Gastrointestinal: Normal bowel sounds, Soft and benign - Problems (1) Chest pain Current Visit: Yes Status: Acute Plan: Patient is 54 years of age admitted with left-sided pleuritic chest pain heavy smoker he is 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
[2019-11-06 12:31] VITALS: BP 101/52; TEMP 99.1
== END 2019-11-06 13:33 | disposition home or self-care (01) ==
LOC: ER 05:23 → ERHOLD 08:57 → 4TH 10:14 → ERHOLD 12:20 → 4TH 20:28
PROVIDERS: ADMIT Family Medicine; ATTEND Family Medicine
DX: R91.1 Solitary pulmonary nodule (principal); R04.2 Hemoptysis; J44.9 Chronic obstructive pulmonary disease, unspecified; R07.81 Pleurodynia; M06.9 Rheumatoid arthritis, unspecified; F17.200 Nicotine dependence, unspecified, uncomplicated; Z03.818 Encounter for observation for suspected exposure to other biological agents ruled out; Z71.6 Tobacco abuse counseling; Z82.49 Family history of ischemic heart disease and other diseases of the circulatory system
CPT/HCPCS: 93005; 87040 ×2; 87070; 85025 ×2; 80048 ×2; 36415 ×2; 83735; 82550; 87205; 85610; 85379; 80076; 85730; 84484; 82553; 83690; 87015; 87206; 83880; 87116; 71275; 71045; 99285; U0001; Q9967; J1650; J7606; G0378 ×3